=== PATIENT | female | born 1960 | race African-American/Black ===

== ENCOUNTER 2019-01-05 20:05 | Emergency (ER) | payer MEDICAID, MEDICARE ==
[~2019-01-05] VITALS: Ht 162.6 cm; Wt 75.0 kg
[~2019-01-05 20:05] MED LIST: ENAL20TA PO; FURO-152 PO; HYDR-519 PO; LISI-604 PO; SIMV20TA6 PO
[2019-01-05 23:18] LABS: CLARITY URINE TURBID (CLEAR); COLOR URINE YELLOW (YELLOW); KETONES URINE NEGATIVE (NEGATIVE); LEUKOCYTE ESTERASE URINE 3+ (NEGATIVE); NITRITE URINE POSITIVE (NEGATIVE); OCCULT BLOOD URINE 2+ (NEGATIVE); PH URINE 6.5 (4.5-8.0); PROTEIN URINE 1+ (NEGATIVE); UROBILINOGEN URINE 0.2 E.U./dL (0.2-1.0)
[2019-01-06 00:31] VITALS: BP 138/81
== END 2019-01-06 00:52 | disposition home or self-care (01) ==
LOC: ER 20:05
DX: N39.0 Urinary tract infection, site not specified (principal)
CPT/HCPCS: 87077; 87186; 99283

== ENCOUNTER 2019-02-01 14:26 | Emergency (ER) | payer MEDICARE ==
[~2019-02-01] VITALS: Ht 162.6 cm; Wt 75.0 kg
[2019-02-01 20:26] VITALS: BP 131/79
== END 2019-02-01 20:28 | disposition home or self-care (01) ==
LOC: ER 14:26
DX: J06.9 Acute upper respiratory infection, unspecified (principal); I10 Essential (primary) hypertension; Z96.659 Presence of unspecified artificial knee joint; Z79.899 Other long term (current) drug therapy
CPT/HCPCS: 71045; 99283